=== PATIENT | male | born 1965 | race Caucasian/White ===

== ENCOUNTER 2024-06-25 10:48 | Outpatient (CLI) | payer BC, SELFPAY ==
--- NOTE | ~2024-06-25 | MR_ITS ---
EXAMINATION: MR lower leg RT wo/w con DATE: 06/25/2024 12:12 INDICATION: Nodule of skin of right lower leg. TECHNIQUE: Magnetic resonance imaging (MRI) of the right lower leg without and with 20 mL MultiHance was performed without intravenous contrast. COMPARISON: None. FINDINGS: Bone alignment is normal. No fracture. There is mild right knee osteoarthritis. There is a small knee joint effusion. Superficial to the right tibial tuberosity, there is a 3.9 x 1.6 x 2.3 cm thick-walled cystic mass. There is a moderate-sized Ramsey's cyst. IMPRESSION: 1. 3.9 x 1.6 x 2.3 cm thick-walled cystic mass superficial to right tibial tuberosity, consistent wit h bursitis. Reviewed, dictated and finalized at location A. IMPRESSION: 1. 3.9 x 1.6 x 2.3 cm thick-walled cystic mass superficial to right tibial tube rosity, consistent with bursitis.
== END 2024-06-25 10:49 ==
LOC: MICIMG 10:51
PROVIDERS: PCP Nurse Practitioner; Visit Provider Nurse Practitioner
DX: R22.41 Localized swelling, mass and lump, right lower limb (principal)
CPT/HCPCS: 73720; A9577